=== PATIENT | female | born 1965 | race Caucasian/White ===

== ENCOUNTER 2024-03-15 13:00 | Emergency (ER) | payer BC, SELFPAY ==
[2024-03-15 13:03] VITALS: BP 122/75; PULSE 65; RESP 16; TEMP 36.9; O2SAT 100
--- NOTE | 2024-03-15 13:15 | DI.RAD_ITS ---
Exam(s) XR FOREARM RT EXAM: XR FOREARM RT CLINICAL HISTORY: pain s/p fall. TECHNIQUE: 2D digital imaging was performed. COMPARISON: No exams were available for comparison FINDINGS: Two views There is focal soft tissue swelling of the dorsal aspect of the proximal forearm. No radiopaque fore ign body. No gas in the soft tissues. No fractures of the forearm bones evident. No incidental oss eous lesions. IMPRESSION: No fractures in the radius and ulna. Focal subcutaneous soft tissue swelling on the dorsal aspect of proximal aspect of the forearm. Ther e is no swelling of the olecranon bursa. DATA REPOSITORY: RADIATION DOSE DELIVERED:
--- NOTE | 2024-03-15 13:15 | DI.RAD_ITS ---
Exam(s) XR ELBOW RT COMPLETE EXAM: XR ELBOW RT COMPLETE CLINICAL HISTORY: pain s/p fall. TECHNIQUE: 2D digital imaging was performed. COMPARISON: No exams were available for comparison FINDINGS: 3 views There is relatively focal soft tissue swelling over the proximal half of the dorsal forearm. No radi opaque foreign body. No fractures evident and no elbow joint effusion. Findings at the level the me dial epicondyle may reflect incidental findings of epicondylitis. No similar finding seen at the lev el of the lateral epicondyle. Radial head and neck appear unremarkable. Olecranon bursa unremarkabl e. IMPRESSION: Focal soft tissue swelling dorsal aspect the proximal forearm. No radiopaque foreign body. No gas i n soft tissues. No acute osseous findings. No elbow joint effusion DATA REPOSITORY: RADIATION DOSE DELIVERED:
--- NOTE | 2024-03-15 13:17 | ED.GENADUL_ITS ---
Discharge Plan Disposition Patient Disposition: Home Condition: Stable Discharge Details Chief Complaint: Fall/Non TraumaCriteria Clinical Impression: Fall, Contusion of arm, right, Blunt head trauma, Back contusion, Blunt trauma of multiple sites of trunk Primary Care Provider: Unknown,Unknown ED Provider: Wallace Sharma Home Meds and New Rx's Prescriptions: No Action No Known Home Meds Discharge Instructions Additional Instructions: Your imaging did not show any concerning traumatic findings. You did have what appears to be a fibroid in your uterus but your primary care should be made aware of this and he should have a follow-up ultrasound to confirm this. If develop any severe worsening pain, feel more ill, or have new symptoms such as persistent vomiting return to the emergency department for reevaluation You can take 1000 mg of acetaminophen and 600 mg of ibuprofen every 6 hours as needed HPI General Mode of arrival: EMS . Date/Time Provider Initiated Documentation: 03/15/24 13:03 . Limitations to Documentation: no limitations . Information obtained by: patient . History of Present Illness 58 year old F presents to the emergency department with the chief complaint of fall, right arm and torso pain, described as moderate, Quality is described as aching, Patient started experiencing this hour(s) (45) and it has been constant. No relieving factors improve symptom(s), No exacerbating factors reported . Patient notes chest pain; denies fever/chills and shortness of breath. Patient did receive the following treatments prior to arrival, none Related Data Home Medications ?Medication ?Instructions ?Recorded ?Confirmed Unknown [No Known Home Meds] 03/15/24 03/15/24 Allergies Allergy/AdvReac Type Severity Reaction Status Date / Time No Known Allergies Allergy Unverified 03/15/24 13:02 General Stated Complaint: Fall/Non TraumaCriteria RAHEEM: 3 Review of Systems All systems reviewed & are unremarkable except as noted in HPI and below Constitutional Constitutional: Denies chills, Denies fever(s) and Denies weakness Cardiovascular Cardiovascular: Reports chest pain and Denies dyspnea Respiratory Respiratory: Denies cough and Denies dyspnea Gastrointestinal Gastrointestinal: Reports abdominal pain and Denies vomiting Integumentary/Breasts Skin/Breast: Denies rash Neurologic Neurologic: Denies weakness Course Vital Signs Vital signs: Vital Signs Temperature 36.9 C 03/15/24 13:03 Pulse 65 03/15/24 13:03 Respiratory Rate 16 03/15/24 13:03 Blood Pressure 122/75 03/15/24 13:03 Pulse Oximetry 100 03/15/24 13:03 Temperature 36.9 C 03/15/24 13:03 Temperature Source Temporal Artery Scan 03/15/24 13:03 Pulse 65 03/15/24 13:03 Respiratory Rate 16 03/15/24 13:03 Respiratory Effort Normal, Non-Labored 03/15/24 13:06 Blood Pressure 122/75 03/15/24 13:03 Blood Pressure Position Supine 03/15/24 13:03 Pulse Oximetry 100 03/15/24 13:03 Oxygen Delivery Method Room Air 03/15/24 13:03 Oxygen Flow Rate 0 03/15/24 13:03 Pain Level 3 03/15/24 13:09 Medical Decision Making 58-year-old female who denies any significant past medical history comes in after a fall. She says she was standing 4 feet or higher on a bale of hay trying to move the ladder when she lost footing and fell landing on her right side. Denies loss of consciousness but has a right-sided headache, right lateral chest pain and also right lower back pain. Also has some right oblique area pain. She also notes some right elbow and right forearm pain. She is alert and oriented x 4 with a GCS of 15 on arrival. She has no signs of trauma to the head, extraocular eye movements intact and pupils are equal and reactive to light. She has some mild right lateral anterior chest wall tenderness, some right lower quadrant tenderness without guarding. She has midline L4-L5 spinal tenderness. She is able to move her legs and her hips. She has pain over her right lateral elbow but does have full range of motion though it does hurt when she moves it. Has mid right forearm pain without visible or palpable deformity. No pain in the wrist or hand with intact sensation and pulses. Given her headache, chest and abdominal pain status post fall will obtain CT head, C- spine, chest abdomen pelvis CT with spinal recons. Will obtain x-rays of her elbow and right forearm. Patient stable, no new pain. All imaging unremarkable for acute traumatic findings, has what is likely a fibroid in her uterus but advised that she needs to have a follow-up ultrasound to confirm this with her PCP. She is stable for discharge, advised to follow-up with her PCP and return precautions given Differential Diagnosis Differential Diagnosis: Contusion, fracture, hemorrhage Imaging Data Radiologic Study: Attestation: I personally reviewed and interpreted this imaging study as follows: Imaging: CT Scan Radiologist's impression: no acute findings head/cspine ct Radiologic Study #2: Attestation: I personally reviewed and interpreted this imaging study as follows: Imaging: X-Ray Radiologist's impression: Exam(s) XR FOREARM RT EXAM: XR FOREARM RT CLINICAL HISTORY: pain s/p fall. TECHNIQUE: 2D digital imaging was performed. COMPARISON: No exams were available for comparison FINDINGS: Two views There is focal soft tissue swelling of the dorsal aspect of the proximal forearm. No radiopaque foreign body. No gas in the soft tissues. No fractures of the forearm bones evident. No incidental osseous lesions. IMPRESSION: No fractures in the radius and ulna. Focal subcutaneous soft tissue swelling on the dorsal aspect of proximal aspect of the forearm. There is no swelling of the olecranon bursa. Radiologic Study #3: Attestation: I personally reviewed and interpreted this imaging study as follows: Imaging: X-Ray Radiologist's impression: Patient Name: Hope Valentin Unit #: [id number] Loc: ER Ordering Provider: Wallace Sharma M.D. Status: [facility] ER Primary Care Provider: Unknown,Unknown Date of Exam: 03/15/24 Sex: F Admission Date: 03/15/24 : 1965 Age: 58 Exam(s) XR ELBOW RT COMPLETE EXAM: XR ELBOW RT COMPLETE CLINICAL HISTORY: pain s/p fall. TECHNIQUE: 2D digital imaging was performed. COMPARISON: No exams were available for comparison FINDINGS: 3 views There is relatively focal soft tissue swelling over the proximal half of the dorsal forearm. No radiopaque foreign body. No fractures evident and no elbow joint effusion. Findings at the level the medial epicondyle may reflect incidental findings of epicondylitis. No similar finding seen at the level of the lateral epicondyle. Radial head and neck appear unremarkable. Olecranon bursa unremarkable. IMPRESSION: Focal soft tissue swelling dorsal aspect the proximal forearm. No radiopaque foreign body. No gas in soft tissues. No acute osseous findings. No elbow joint effusion Radiologic Study #4: Attestation: I personally reviewed and interpreted this imaging study as follows: Imaging: CT Scan Radiologist's impression: Patient Name: Hope Valentin Unit #: [id number] Loc: ER Ordering Provider: Wallace Sharma M.D. Status: REG ER Primary Care Provider: Unknown,Unknown Date of Exam: 03/15/24 Sex: F : 1965 Age: 58 Exam(s) a CT:CT chest PE abd & pelvis w Exam(s) CT CHEST PE ABD PELVIS W EXAM: CT CHEST PE ABD PELVIS W CLINICAL HISTORY: fall, right sided pain. TECHNIQUE: Imaging Protocol: Axial CT angiography was performed with multi- slice acquisition and multi-planar and/or 3D reconstructions. CONTRAST MATERIAL: Intravenous: Omnipaque 350 Contrast volume:100 ml Oral: None COMPARISON: No exams were available for comparison FINDINGS: CHEST: PULMONARY ARTERIES: There are no intra-arterial filling defects to suggest the presence of acute pulmonary emboli. LUNGS: There is no evidence of pulmonary infarction.No lung contusion or infiltrates. No pleural effusions. No pneumothorax MEDIASTINUM: No evidence of sternal fracture or mediastinal hematoma. Visualized thyroid unremarkable. CARDIAC: Heart size is normal. There is no pericardial effusion. There is no significant shift of the interventricular septum.Thoracic aorta unremarkable. Normal size. No dissection. OSSEOUS: No fractures. No significant osseous lesions. ABDOMEN: GI: No evidence of mesenteric nor bowel wall hematoma. No ascites. There is no ascites. LIVER: No liver laceration. Multiple small cysts are noted in the right hepatic lobe, largest of which measures 1.3 cm. No solid lesions. No significant dilatation of intrahepatic ducts. GALLBLADDER/BILIARY: No obvious gallbladder pathology. CBD is not dilated. PANCREAS: No evidence of pancreatic mass nor dilatation of the pancreatic duct. SPLEEN: Normal size. No lacerations. No subcapsular hematomas. Splenic and portal veins are patent. ADRENALS: There are no significant adrenal masses. KIDNEYS:No renal lacerations nor subcapsular hematomas. No calculi nor hydronephrosis. No solid renal masses. ABDOMINAL AORTA: Aorta and aortoiliac segments unremarkable LYMPH NODES: There is no retroperitoneal or para-aortic adenopathy. ABDOMINAL WALL/GI: No evidence of significant anterior abdominal wall hernia. No subcutaneous hematomas. PELVIS: LYMPH NODES: There is no intrapelvic nor inguinal adenopathy. GI: No evidence of appendicitis.No evidence of sigmoid diverticulitis.Abundant fecal material noted throughout the colon. Colon diameter upper normal. No significant diverticular disease. URINARY BLADDER: Intact. Unremarkable. REPRODUCTIVE: Uterus normal size. However, there is no abnormal enhancing structure within the endometrial canal measuring 1.7 x 1.5 cm. Possibly submucosal fibroid but cannot exclude large polyp or neoplasm in the endometrial cavity. There are no abnormal adnexal masses. No free fluid in the pelvis. OSSEOUS: No fractures. No significant osseous lesions. IMPRESSION: 1. No evidence of acute pulmonary emboli nor pulmonary infarction. 2. No evidence of aortic dissection nor pericardial effusion. 3. No significant acute trauma sequelae in the chest, abdomen, and pelvis. 4. Incidentally noted is an abnormal 17 x 15 millimeter enhancing structure in the central uterus-endometrial canal. Recommend follow-up ultrasound. Main concerns are for endometrial polyp or neoplasm. No abnormal adnexal masses. No free fluid. Radiologic Study #5: Attestation: I personally reviewed and interpreted this imaging study as follows: Imaging: CT Scan Radiologist's impression: IMPRESSION: No acute osseous findings in the thoracic and lumbar spinal columns. Lab Data Lab results reviewed: Yes I reviewed the patient's lab results. Quality:SDOH Health Related Social Needs: No Data to Display PFSH All Active Problems (Updated 03/15/24 @ 15:21 by Wallace Sharma MD) Blunt trauma of multiple sites of trunk (Acute) Back contusion (Acute) Blunt head trauma (Acute) Contusion of arm, right (Acute) Fall (Acute) Social History Smoking/Tobacco Use Status: Never Smoking risk assessment performed?: Yes Alcohol Intake: current Alcohol Intake frequency: holidays/special occasions only Drug use: Never Substance use type: does not use Housing: house Do you feel safe at home: Yes Do you feel safe in your relationship?: Yes
[2024-03-15] MEDS: ACETAMINOPHEN 1,000 MG/100 ML BTL 400 MG IVPB (13:50)
[2024-03-15] MEDS: Normal Saline 1,000 ML 1000 ML IV (13:51)
[2024-03-15 13:59] LABS: Abs Immature Grans 0.11 10^3/uL (0.0-0.06); Absolute Basophil Count 0.05 10^3/uL (0.0-0.2); Absolute Lymphocyte Count 1.08 10^3/uL (1.2-3.4); Absolute Monocyte Count 0.63 10^3/uL (0.1-0.8); Absolute Neutrophil Count 8.17 10^3/uL (1.2-6.7); Basophils % 0.5 %; HGB 12.3 g/dL (11.2-15.7); Immature Grans % 1.1 %; Lymphocytes % 10.7 %; MCH 29.3 pg (27.0-33.0); MCHC 33.2 % (32.0-36.0); MCV 88 fL (80-95); MPV 9.8 fL (8.0-11.0); Monocytes % 6.2 %; Neutrophils % 80.5 %; Platelet Count 201 10^3/uL (130-400); RDW-SD 38.7 fL; WBC 10.14 10^3/uL (4.4-10.8)
[2024-03-15] MEDS: Omnipaque 350 MG/ML 100 ML BTL IJ (14:13)
[2024-03-15] MEDS: Normal Saline - Diluent 50 ML VIAL IJ (14:14)
--- NOTE | 2024-03-15 14:17 | DI.CT_ITS ---
Exam(s) CT HEAD CERVICAL SPINE WO EXAM: CT HEAD CERVICAL SPINE WO CLINICAL HISTORY: right sided pain s/p fall. TECHNIQUE: Imaging Protocol: Axial computed tomography images with coronal and sagittal reformatted images were created and reviewed COMPARISON: No exams were available for comparison FINDINGS: BRAIN: There are no skull fractures nor fluid in the visualized paranasal sinuses. There is no evidence of intracranial hemorrhage, mass effect, or shift of midline structures. There are no extra-axial fluid collections. The ventricles are not enlarged or shifted and there is no blo od within the ventricular system nor within the basal cisterns. CERVICAL SPINE: There is mild reversal of normal cervical curvature. There is no evidence of fracture. Chronic disc space narrowing at C4-5 and C5-6 levels noted as well as bilateral Luschka joint osteophytes these 2 levels. There are mild degenerative changes in upper right facet joints. There is no facet malalignment evident.. No significant prevertebral soft tiss ue swelling. There is no significant facet joint malalignment. No significant osseous lesions evident. IMPRESSION: No acute intracranial findings on this noninfused CT scan of the brain. No evidence of cervical spine fracture, malalignment, nor acute compromise of the cervical spinal can al. Chronic degenerative disc disease. Called by myself to ER physician 03/15/2024 2:30 p.m. RADIATION DOSE DELIVERED: Total DLP DATA REPOSITORY: All CT scans at this facility are submitted to the National Radiology Data Registry (NRDR) Dose Index Registry (DIR) with the [employer] (A[employer]). RADIATION OPTIMIZATION: All CT scans at this facility use at least one of these dose optimization te chniques: automated exposure control; mA and/or kV adjustment per patient size (includes targeted exa ms where dose is matched to clinical indication); or iterative reconstruction.
--- NOTE | 2024-03-15 14:25 | DI.CT_ITS ---
Exam(s) CT CHEST PE ABD PELVIS W EXAM: CT CHEST PE ABD PELVIS W CLINICAL HISTORY: fall, right sided pain. TECHNIQUE: Imaging Protocol: Axial CT angiography was performed with multi-slice acquisition and m ulti-planar and/or 3D reconstructions. CONTRAST MATERIAL: Intravenous: Omnipaque 350 Contrast volume:100 ml Oral: None COMPARISON: No exams were available for comparison FINDINGS: CHEST: PULMONARY ARTERIES: There are no intra-arterial filling defects to suggest the presence of acute pulm onary emboli. LUNGS: There is no evidence of pulmonary infarction.No lung contusion or infiltrates. No pleural eff usions. No pneumothorax MEDIASTINUM: No evidence of sternal fracture or mediastinal hematoma. Visualized thyroid unremarkabl e. CARDIAC: Heart size is normal. There is no pericardial effusion. There is no significant shift of t he interventricular septum.Thoracic aorta unremarkable. Normal size. No dissection. OSSEOUS: No fractures. No significant osseous lesions. ABDOMEN: GI: No evidence of mesenteric nor bowel wall hematoma. No ascites. There is no ascites. LIVER: No liver laceration. Multiple small cysts are noted in the right hepatic lobe, largest of whi ch measures 1.3 cm. No solid lesions. No significant dilatation of intrahepatic ducts. GALLBLADDER/BILIARY: No obvious gallbladder pathology. CBD is not dilated. PANCREAS: No evidence of pancreatic mass nor dilatation of the pancreatic duct. SPLEEN: Normal size. No lacerations. No subcapsular hematomas. Splenic and portal veins are patent . ADRENALS: There are no significant adrenal masses. KIDNEYS:No renal lacerations nor subcapsular hematomas. No calculi nor hydronephrosis. No solid david l masses. ABDOMINAL AORTA: Aorta and aortoiliac segments unremarkable LYMPH NODES: There is no retroperitoneal or para-aortic adenopathy. ABDOMINAL WALL/GI: No evidence of significant anterior abdominal wall hernia. No subcutaneous hemato mas. PELVIS: LYMPH NODES: There is no intrapelvic nor inguinal adenopathy. GI: No evidence of appendicitis.No evidence of sigmoid diverticulitis.Abundant fecal material noted t hroughout the colon. Colon diameter upper normal. No significant diverticular disease. URINARY BLADDER: Intact. Unremarkable. REPRODUCTIVE: Uterus normal size. However, there is no abnormal enhancing structure within the endom etrial canal measuring 1.7 x 1.5 cm. Possibly submucosal fibroid but cannot exclude large polyp or n eoplasm in the endometrial cavity. There are no abnormal adnexal masses. No free fluid in the pelvi s. OSSEOUS: No fractures. No significant osseous lesions. IMPRESSION: 1. No evidence of acute pulmonary emboli nor pulmonary infarction. 2. No evidence of aortic dissection nor pericardial effusion. 3. No significant acute trauma sequelae in the chest, abdomen, and pelvis. 4. Incidentally noted is an abnormal 17 x 15 millimeter enhancing structure in the central uterus-end ometrial canal. Recommend follow-up ultrasound. Main concerns are for endometrial polyp or neoplasm . No abnormal adnexal masses. No free fluid. Report called by myself to ER physician 03/15/2024 2:58 p.m. RADIATION DOSE DELIVERED: Total DLP DATA REPOSITORY: All CT scans at this facility are submitted to the National Radiology Data Registry (NRDR) Dose Index Registry (DIR) with the [employer] (ACR). RADIATION OPTIMIZATION: All CT scans at this facility use at least one of these dose optimization te chniques: automated exposure control; mA and/or kV adjustment per patient size (includes targeted exa ms where dose is matched to clinical indication); or iterative reconstruction.
[2024-03-15 14:34] LABS: ALT 25 U/L (14-59); AST 20 U/L (15-37); Alkaline Phosphatase 65 U/L (46-116); Anion Gap 9.9 mmol/L (3-11); BUN 19 mg/dL (7-18); Bilirubin, Total 0.61 mg/dL (0.2-1.0); CO2 27.1 mmol/L (21.0-32.0); CREATININE 0.8 mg/dL (0.55-1.02); Calcium 8.8 mg/dL (8.5-10.1); Chloride 102 mmol/L (98-107); Glucose 97 mg/dL (74-106); Magnesium 1.9 mg/dL (1.8-2.4); Potassium 3.8 mmol/L (3.5-5.1); Sodium 139 mmol/L (136-145); Total Protein 7.1 g/dL (6.4-8.2)
--- NOTE | 2024-03-15 14:35 | DI.CT_ITS ---
Exam(s) CT THORACIC LUMBAR SPINE REC EXAM: CT THORACIC LUMBAR SPINE REC CLINICAL HISTORY: T and L spine, pain s/p fall TECHNIQUE: COMPARISON: CT CT CHEST PE ABD PELVIS W from 03/15/2024 FINDINGS: THORACIC SPINAL COLUMN: No evidence of fracture, listhesis, nor disc space narrowing. No facet malalignment. No incidental osseous lesions. No acute compromise of the spinal canal. LUMBOSACRAL SPINAL COLUMN: No evidence of fracture, listhesis, nor pars defects. No disc space narrowing. Facet joints unremar kable. No facet malalignment. No osseous lesions. No acute compromise of the spinal canal. Visual ized SI joints unremarkable IMPRESSION: No acute osseous findings in the thoracic and lumbar spinal columns.
[2024-03-15 14:44] VITALS: BP 139/77; PULSE 63; RESP 15; O2SAT 100
[2024-03-15 15:27] VITALS: BP 125/75; PULSE 72; RESP 16; O2SAT 98
== END 2024-03-15 18:16 | disposition home or self-care (01) ==
PROVIDERS: Emergency Provider Emergency Medicine
DX: S50.11XA Contusion of right forearm, initial encounter (principal); S09.8XXA Other specified injuries of head, initial encounter; S20.221A Contusion of right back wall of thorax, initial encounter; W17.89XA Other fall from one level to another, initial encounter; Y93.89 Activity, other specified; Y92.89 Other specified places as the place of occurrence of the external cause
CPT/HCPCS: 71275; 74177; 80053; 86850; 86900; 86901; 96374; 99285; 70450; 72125; 73080; 73090; 83735; 85025; 99284; J0131; J3490